=== PATIENT | female | born 2000 | race Caucasian/White ===

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

== ENCOUNTER → 2025-08-12 07:37 | Outpatient (CLI) | payer OTHER, SELFPAY ==
--- NOTE | 2025-08-12 07:39 | DI.US.S_ITS ---
PROCEDURE: US OB >= 14 WEEKS FETUS INDICATIONS: 20 Week Anatomy scan OUTSIDE/PRIOR DATING DATA: Last menstrual period (LMP): 03/26/2025 LMP-based estimated date of delivery (ALAN): 12/31/2025 First dating scan (date and location): 05/27/2025 Estimated date of delivery (ALAN) from first dating scan: 01/04/2026 The calculations are made using the clinical ALAN of 12/31/2025. TECHNIQUE: Real-time scanning was performed of the fetus, with image documentation and biometric measurements. Endovaginal scanning: Not performed COMPARISON: None. FINDINGS: General: A single living intrauterine gestation is present. Presentation: Transverse Placenta: Placental position is posterior, without previa. Amniotic fluid index: 19.2 cm, normal range is 5-24 cm. Single deepest vertical pocket is 6.7 cm. heart rate: 130 beats per minute. Maternal cervical canal: 5.0 cm long. Normal lower limit is 2.5 cm. biometrics: Biparietal diameter: 4.8 cm, 20 weeks 4 days Head circumference: 16.9 cm, 19 weeks 4 days Abdominal circumference: 15.1 cm, 20 weeks 2 days Femur length: 2.8 cm, 18 weeks 4 days Clinically estimated gestational age: 19 weeks 6 days Composite gestational age from present scan: 19 weeks 5 days Estimated weight and percentile: 301 g, 30th percentile Anatomic survey: Neuro: Ventricles are non-dilated at less than 10 mm. Cisterna magna is normal at 3-11 mm. Cerebellum is normal in size and morphology. Nuchal skin fold: Normal at less than 6 mm between 14-21 weeks gestational age. Face: Nose and lips, facial profile are normal. Spine: No evidence for spina bifida. Heart: 4-chambered heart is present, with normal ventricular outflow tracts. Diaphragm: Diaphragm is intact. Stomach: Left-sided stomach is present. Kidneys: No hydronephrosis. Normal is less than 5 mm in 2nd trimester, less than 7 mm in 3rd trimester. Cord: 3-vessel cord has orthotopic insertion. Bladder: Normal in size. Extremities: All 4 extremities identified. IMPRESSION: 1. Single live intrauterine with appropriate interval growth. 2. anatomic survey is within normal limits. Approved by: Chan Chapman M.D. on 08/12/2025 at 10:34
== END ==
LOC: US 07:38
PROVIDERS: PCP Student in an Organized Health Care Education/Training Program; Referring Provider Student in an Organized Health Care Education/Training Program; Visit Provider Student in an Organized Health Care Education/Training Program
DX: Z34.92 Encounter for supervision of normal pregnancy, unspecified, second trimester (principal); Z3A.19 19 weeks gestation of pregnancy
CPT/HCPCS: 76811

== ENCOUNTER → 2025-10-09 09:50 | Outpatient (CLI) | payer OTHER, SELFPAY ==
[2025-10-09 12:30] LABS: Hematocrit 35.3 % (36-46); Hemoglobin 12.2 g/dL (12.0-16.0)
[2025-10-09 13:21] LABS: GTT (PREG) 1 Hour PP 50gm Dose 72 mg/dL (76-139)
== END ==
LOC: LAB 09:54
PROVIDERS: PCP Student in an Organized Health Care Education/Training Program; Referring Provider Student in an Organized Health Care Education/Training Program; Visit Provider Student in an Organized Health Care Education/Training Program
DX: Z34.92 Encounter for supervision of normal pregnancy, unspecified, second trimester (principal); Z3A.24 24 weeks gestation of pregnancy
CPT/HCPCS: 36415; 82950; 85014; 85018